=== PATIENT | female | born 1950 | race Caucasian/White ===

== ENCOUNTER 2019-01-24 12:24 | Inpatient (IN) | payer MEDICARE, BC ==
[2019-01-24] MEDS ORDERED: Morphine 4 MG/ML VIAL ONE ×3 (13:31→18:41)
[2019-01-24] MEDS ORDERED: Ondansetron PF 4 MG/2 ML Vial ONE (13:32)
[2019-01-24 14:09] LABS: #Lymphocytes 0.6 thou/uL (1.20-3.40); #Neutrophils 7.1 thou/uL (1.40-6.50); %Basophils 0.2 % (0.0-1.0); %Eosinophils 0.3 % (0.0-10.0); %Lymphocytes 6.6 % (21.0-51.0); %Monocytes 11.8 % (0.0-10.0); Hemoglobin 17.3 g/dL (12.0-16.0); Mean Corpuscular HGB CONC 33.6 g/dL (32.0-36.0); Mean Platelet Volume 7.3 fL (7.4-10.4); Platelet Count 266 thou/uL (130-400); RBC Distribution Width 12.2 % (11.5-14.5); White Blood Cell (WBC) Count 8.7 thou/uL (4.8-10.8)
[2019-01-24 14:28] LABS: ALT (SGPT) 20 U/L (8-55); AST (SGOT) 25 U/L (5-34); Albumin 4.3 g/dL (3.4-4.8); Alkaline Phosphatase 82 U/L (40-110); Anion Gap 25 mmol/L (10-20); BUN (Urea Nitrogen) 33 mg/dL (9.8-20.1); Bilirubin, Total 1.9 mg/dL (0.2-1.2); Calc. Creatinine Clearance 0 mL/min (70-130); Calcium 9.4 mg/dL (7.8-10.44); Carbon Dioxide 21 mmol/L (23-31); Chloride 101 mmol/L (98-107); Estimated GFR-MDRD 54; Globulin 3.1 g/dL (2.4-3.5); Glucose 70 mg/dL (80-115); Potassium 3.2 mmol/L (3.5-5.1); Protein, Total 7.4 g/dL (6.0-8.3); Sodium 144 mmol/L (136-145)
[2019-01-24 14:30] LABS: MDiff Complete? YES; Macrocytosis SLIGHT = 6-15 cells (100X) (0-5/hpf); Platelet Morphology Comment Appears Adequate; Polychromasia SLIGHT = 2-3 cells (100X) (0-2/hpf)
[2019-01-24 16:22] LABS: Bilirubin Small (Negative); Blood, Urine Negative (Negative); Glucose, Urine (Dipstick) Negative (Negative); Leukocyte Small (Negative); Nitrite Positive (Negative); Protein, Urine (Dipstick) 30 mg/dL (Neg-Trace)
[2019-01-24 16:27] LABS: Clarity Hazy (Clear)
[2019-01-24 16:28] LABS: Bacteria/HPF 4+ HPF (None Seen); RBC/HPF 0-3 HPF (0-3); Squamous Epithelial 0-3 HPF (0-3); WBC/HPF 21-50 HPF (0-3)
[2019-01-24] MEDS ORDERED: Iopamidol-370 76% 500 ML 1 ML ONE (16:43)
--- NOTE | 2019-01-24 17:06 | CT ---
EXAM: CT angiogram chest and abdomen with IV contrast and three-dimensional reconstructions PROVIDED CLINICAL HISTORY: Back pain COMPARISON: None FINDINGS: There is no evidence for aortic dissection or aneurysm. The pulmonary arterial system demonstrates no filling defect as visualized. The lungs are free of significant opacity. No pleural fluid or pneumothorax apparent. The mesenteric renal and iliac vessels demonstrate no significant abnormality. Scattered atherosclero tic vascular calcification is seen. The solid abdominal organs are suboptimally evaluated in the arterial phase of contrast but appear unremarkable other than fatty liver. There is no bowel dilatati on, inflammatory fat stranding free fluid or free air apparent. There is severe chronic appearing burst fracture involving T8. There is a nondisplaced fracture invol ving the spinous process of T8 which appears acute. There is an acute appearing burst fracture involving L1. There is retropulsion of the posterior aspects of the vertebral body into the spinal ca nal with associated mild canal stenosis. Vertebral body heights appear otherwise preserved. Remote right-sided rib fractures are seen. IMPRESSION: 1. No evidence for aortic dissection. 2. Acute T8 spinous process and L1 burst fractures. 3. Severe chronic appearing burst fracture of T8.
[2019-01-24] MEDS ORDERED: Sodium Chloride 0.9% 100 ML ONE (18:41)
[2019-01-24] MEDS ORDERED: cefTRIAXone\\ROCEPHIN 2 GM VIAL ONE (18:41)
[2019-01-24] MEDS ORDERED: Ondansetron ODT 4 MG TAB PO PRN (19:40)
[2019-01-24 19:49] LABS: Hemoglobin 16.5 g/dL (12.0-16.0); Mean Corpuscular HGB CONC 33.7 g/dL (32.0-36.0); Mean Corpuscular Hemoglobin 36.2 pg (27.0-31.0); Mean Platelet Volume 7.3 fL (7.4-10.4); Platelet Count 256 thou/uL (130-400); RBC Distribution Width 12.2 % (11.5-14.5); Red Blood Cell (RBC) Count 4.57 mill/uL (4.20-5.40)
[2019-01-24 19:59] LABS: #Eosinphils 0.1 thou/uL (0.0-0.7); #Monocytes 1.2 thou/uL (0.11-0.59); #Neutrophils 6.7 thou/uL (1.40-6.50); %Basophils 0.1 % (0.0-1.0); %Eosinophils 1.1 % (0.0-10.0); %Lymphocytes 10.9 % (21.0-51.0); %Monocytes 13.6 % (0.0-10.0); %Neutrophils 74.2 % (42.0-75.0)
[2019-01-24 20:03] LABS: Lactic Acid 1.1 mmol/L (0.5-2.2)
--- NOTE | 2019-01-24 20:10 | PDOC.EVN ---
Event Note - Event Note Event Note: [id number]
--- NOTE | 2019-01-24 20:33 | MRI ---
EXAM: MRI Lumbar Spine WO Con PROVIDED CLINICAL HISTORY: Back pain COMPARISON: CT 01/24/2019 FINDINGS: Acute burst fracture of L1 is redemonstrated. Approximately 20% loss of vertebral body height. There is reduction in the diameter of the central canal from 15 mm at the level of T12 to approximately 10 millimeters at L1 due to the retropulsed posterior L1 vertebral margin. Lumbar alignment appears normal. Vertebral body heights appear otherwise preserved as visualized. The central canal and foramina demonstrate no additional significant stenosis. Bilateral facet arthritis is noted at L4-5 and L5-S1. Tarlov cyst formation is seen within the sacral canal. IMPRESSION: Acute L1 burst fracture with effacement of the spinal canal as described.
--- NOTE | 2019-01-24 21:13 | HP ---
CHIEF COMPLAINT: Low back pain. HISTORY OF PRESENT ILLNESS: Ms. Soto is a 68-year-old female with past medical history of hypertension, hypothyroidism, thyroid cancer, presents to the emergency room with low back pain that started few days ago. Pain started upon waking up from bed. Denies any known injury, trauma. Back pain is exacerbated with bearing weight. She reported that she was seen at [facility] a few days ago, was diagnosed with fracture in her back. She reports history of neuropathy in her bilateral lower extremities. Workup in the emergency room, including CT angiogram of the chest and abdomen, the patient was found to have acute T8 spinous process and L1 burst fractures. Also severe chronic-appearing burst fracture of T8. Also workup in the emergency room, patient was found to have urinary tract infection. The patient has been feeling increasingly weak and tired lately. Neurosurgeon is being consulted. It was advised to admit the patient under Medical Service and MRI is being ordered. PAST MEDICAL HISTORY: 1. Hypertension. 2. Hypothyroidism. 3. Thyroid cancer. PAST SURGICAL HISTORY: 1. Thyroidectomy. 2. Neuroma on left foot, removed. 3. Tonsillectomy. SOCIAL HISTORY: The patient drinks every day, less than 5 drinks per day. Denies drug use. The patient is a former cigarette smoker. ALLERGIES: ALLERGIC TO SULFA AND TETRACYCLINE. HOME MEDICATIONS: Please see home medication reconciliation form for updated medications. REVIEW OF SYSTEMS: Review of 14 systems negative except what is mentioned history of present illness. FAMILY HISTORY: Reviewed and noncontributory. PHYSICAL EXAMINATION: GENERAL: The patient is awake, alert, in moderate distress. VITAL SIGNS: Initial blood pressure was 203/106, latest blood pressure is 149/99; respiratory rate is 18; pulse is 64; temperature 97.5; pulse oximetry is 100% on room air. HEAD AND NECK: Normocephalic, atraumatic. NECK: Supple. No JVD. CHEST: Fair bilateral air entry. HEART: S1, S2 regular. ABDOMEN: Soft, nontender. Bowel sounds present. NEUROLOGIC: Awake, alert, and oriented x3. PSYCHIATRIC: Normal mood. MUSCULOSKELETAL: Low back tenderness. LABORATORY DATA: Urinalysis is positive for bacteria, wbc's. WBC count is 17.3, hemoglobin is 17.3, and platelets 266. Sodium is 144, potassium is 3.2, glucose is 70, bilirubin is 1.9, sodium is 144. CT of abdomen as mentioned above in the history of present illness. ASSESSMENT AND PLAN: 1. Lumbar vertebral fracture. 2. Acute urinary tract infection. 3. Acute hypokalemia. 4. Acute low back pain. 5. Hypertension, accelerated. PLAN: 1. Admit. 2. Septic workup including urine cultures. 3. IV antibiotics, awaiting culture results. 4. IV fluids. 5. Pain management. 6. Neurosurgeon consulted for evaluation and further management. 7. MRI of the spine is ordered, to follow the results. 8. Reconcile home medications. 9. DVT prophylaxis, SCDs for now. 10. Expected length of stay is at least one midnight. The patient is stable and cleared by neurosurgeon. Job ID: [id number]
[2019-01-24] MEDS: Sodium Chloride 0.9% 1,000 ML IV SCH (21:30)
--- NOTE | 2019-01-24 22:02 | CON ---
DATE OF CONSULTATION: 01/24/2019 HISTORY OF PRESENT ILLNESS: Ms. Soto is a 68-year-old female, who came to the emergency department this evening for severe low back pain. She states that this severe pain started on Saturday when she woke up this morning. She does not recall a fall or trauma, but that is very difficult to get up. She states that it is possible that something happened in the middle of the night that she does not remember. She was seen by primary care on Saturday, was given Robaxin for pain. Outpatient x-rays were taken showing an L1 compression fracture. Things did not improve. She was not given a brace and she reported to the emergency room for severe pain and unable to ambulate. She states that she has not been able to eat or drink anything for the past two days, because she has been bedridden. She states that she has some radiating pain if she tries to move from the low back on that side of her lateral leg, but nothing past the knee and is on the outside. She is not tender and does not follow a specific dermatomal pattern. She denies numbness or tingling. No bowel or bladder dysfunction. No saddle anesthesia. CT shows a burst fracture at L1 and old compression fracture at T8, which is a quite significant compression. The imaging at [place] [facility] shows compression fracture at L1 and comparing the two images, there has definitely been some progression. There is now some retropulsion of this fracture causing mild stenosis in her lumbar spine. The patient is able to move all 4 extremities well. She is alert and oriented. She has bilateral 5/5 strength in deltoids, biceps, triceps, bead trimmer strength, knee flexion , knee extension, dorsiflexion, plantar flexion. She has give-way strength due to pain in bilateral hip flexion. REVIEW OF SYSTEMS: Ten-point review of systems has been completed and negative as stated in the above HPI. ALLERGIES: SULFA, TETRACYCLINES. MEDICATIONS: The patient is unsure of the list of medications, levothyroxine, blood pressure medications, Fosamax. PAST MEDICAL HISTORY: Hypertension, hypothyroidism, history of thyroid cancer. PAST SURGICAL HISTORY: Thyroidectomy, neuroma on left foot removed, and tonsillectomy. SOCIAL HISTORY: The patient states that she drinks alcohol daily. Denies illicit drug use. She is a former tobacco cigarette user, quit more than 10 years ago. PHYSICAL EXAMINATION: VITAL SIGNS: Blood pressure 143/97, heart rate 64, respirations 16, O2 saturations 96% on room air, and temperature 97.8. Constitution: Alert oriented x3 Afebrile, slightly hypertensive, in pain when she moves, nontoxic HEENT: Head normocephalic, atraumatic, PERRL, EOM intact, moist mucus membranes RESP: Normal work breathing room air, symmetric chest rise Extremities: L 5/5 bilateral strength Deltoids, Biceps, Triceps, [employer] Crewmember strength, Knee Flexion, Knee extension, Dorsi flexion, plantar flexion, Give way bilateral Strength to Hip Flexion due to pain. Neuro: Awake Alert oriented X3, Speech spontaneous and fluent, Normal fund of knowledge, No saddle anaesthesia, CN II-XII tested and intact, reflexes symmetric, No clonus, no Babinski IMAGING: CT aortic dissection protocol. No evidence of aortic dissection. Acute T8 spinous process fracture. Chronic appearing compression T8 fracture and acute L1 burst fracture. ASSESSMENT AND PLAN: This is a 68-year-old female who had sever low back pain starting on saturday, Was seen in her PCP office, had Lumbar Xrays, found to have Compression Fx of L1 at that time. She was not given a brace. Pain progressed and reported to the ED, where CT imaging shows worsening of the L1 Fx. Now with retropulsion and narrowing the spinal kajal. We will be bringing Ms. Soto in obtaining MRI to assess for compression of her nerves in the lumbar spine. If needed, we may need to decompress and fuse the segment. Given the strange nauture of her fractures and that pt. is unsure of how this could have happened, her last known fall was a few weeks ago. We will need to get some blood cultures to check for malignancy or infection given that there are lot of uncertainties in this patient's story. Once we have further imaging, we will have more of a plan. Job ID: [id number] [facility]
[2019-01-24] MEDS ORDERED: Potassium Chloride 10 MEQ in Premix Bag 1 BAG IVPB SCH (22:30)
[2019-01-25 01:20] VITALS: BMI 26.3
[2019-01-25 05:33] LABS: Anion Gap 17 mmol/L (10-20); BUN (Urea Nitrogen) 21 mg/dL (9.8-20.1); Calc. Creatinine Clearance 76 mL/min (70-130); Calcium 8.4 mg/dL (7.8-10.44); Carbon Dioxide 23 mmol/L (23-31); Chloride 103 mmol/L (98-107); Estimated GFR-MDRD 67; Glucose 105 mg/dL (80-115); Potassium 3.3 mmol/L (3.5-5.1); Sodium 140 mmol/L (136-145)
[2019-01-25 06:27] LABS: Band 3 % (5-11); Eosinophils 2 % (0-10); Hemoglobin 15.1 g/dL (12.0-16.0); Lymphocytes 8 % (21-51); MDiff Complete? YES; Macrocytosis SLIGHT = 6-15 cells (100X) (0-5/hpf); Mean Corpuscular HGB CONC 33.8 g/dL (32.0-36.0); Mean Corpuscular Hemoglobin 35.6 pg (27.0-31.0); Mean Platelet Volume 7.1 fL (7.4-10.4); Monocytes 14 % (0-10); Neutrophil 70 % (42-75); Platelet Count 239 thou/uL (130-400); Platelet Morphology Comment Appears Adequate; RBC Distribution Width 12.1 % (11.5-14.5); Reactive Lymphocytes 3 % (0-10); Red Blood Cell (RBC) Count 4.25 mill/uL (4.20-5.40); White Blood Cell (WBC) Count 8.3 thou/uL (4.8-10.8)
[2019-01-25] MEDS ORDERED: traMADol HCl 50 MG TAB PO PRN (07:21)
[2019-01-25] MEDS: HYDROcodone/Acetaminophen 7.5/325 mg Tablet PO PRN ×4 (08:27→21:39)
--- NOTE | 2019-01-25 08:42 | PRG ---
DATE OF SERVICE: 01/25/2019 Ms. Soto is starting her second hospital day with us. She was admitted last night through the emergency department with a burst fracture at L1. Her history is complicated. Ms. Soto tells me that from time to time, she goes to bed and wakes in the morning with bumps and scrapes on her scalp and arms. Evidently, she gets out of bed at night, sometimes falls or injures herself after does not remember the incident at all. She denies any alcohol or drug use complicating her memory function. It is with this history that she woke up Saturday with excruciating back pain. She sought medical attention at her primary care physician on Saturday, and an x-ray was ordered of the thoracolumbar spine. Her interpretation of the phone call was that the x-ray looked fine. Because of continued and worsening pain, she eventually came to the emergency department this Saturday, where CT imaging showed a burst fracture of L1 with retropulsion and complete separation of the superior and inferior endplate of L1. An MRI scan was done yesterday, and she was admitted. Ms. Soto denies recent fevers or chills. She does not have a history of metastatic carcinoma. This morning, Ms. Soto is resting in bed with her clamshell TLSO in place. She feels a bit better with the brace. No fevers have been recorded since her admission. Her blood pressures have been in the 130s to 150s, and other vital signs are stable. There is actually quite good strength in the iliopsoas muscles bilaterally. There is a little bit more pain with flexion of the psoas on the left and on the right. There is good strength in the quadriceps, in the hamstrings, in the anterior tib, in the EHL, in the gastroc, and in the toe flexors. There is no sensory alteration in the lower extremities. I reviewed MR imaging, and the retropulsion on the MRI scan is not so severe that it causes compression of the conus or cauda equina. There is CSF space around the roots. The STIR sequences suggest irritation of the psoas muscles bilaterally. There is a hint that there might be a fluid collection anterior and lateral to the spine at the superior margin of the L1 vertebral body on the right side. No contrast was given during this MR examination. CT of the chest, abdomen, pelvis does not reveal any other lesions. Urinalysis has 4+ bacteria. ASSESSMENT AND PLAN: Ms. Soto has an L1 burst fracture without an obvious cause. This is concerning for osteomyelitis or tumor. With osteomyelitis or tumor in the differential, an MRI scan should be done with contrast, so we are going to fix that error today with a contrast scan. If there is no evidence of infection, then we will have to be quite careful about getting her up with the assistance of at least two people and physical therapy. If she can tolerate weightbearing in her brace and x-rays show that the fracture does not move in the upright position with her brace on, then we can try to treat this conservatively. If there is a hand of developing spinal instability, then she will need operative intervention. On the other hand, if this suspected fluid collection in the psoas muscle on the right side is indeed abscess, then she is going to need blood cultures, sedimentation rate, CRP, bracing, and 2 months to 3 months of IV antibiotic therapy. Thankfully, infection leads to more rapid bony fusion than tumor width. Finally, if there is evidence of tumor on the scan, then operative intervention may be considered to get a diagnosis and stabilize. We will await the results of the contrast images. Job ID: [id number]
[2019-01-25] MEDS ORDERED: Prevnar 13-Val Conj/PF 0.5 ML SYRINGE IM ONE (09:00)
[2019-01-25 09:10] LABS: Free T4 (Free Thyroxine) 0.91 ng/dL (0.70-1.48)
[2019-01-25] MEDS ORDERED: Levothyroxine Sodium 88 MCG TAB PO SCH (10:00)
[2019-01-25] MEDS: Lidocaine 5% Patch TD SCH (10:20)
[2019-01-25] MEDS: hydrALAZINE 20 MG/ML VIAL SLOW IVP PRN (10:26)
--- NOTE | 2019-01-25 11:29 | PDOC.HOSPP ---
- Subjective Encounter Date: 01/25/19 Encounter Time: 08:40 Subjective: still has pain in her lower back, its better with her brace no fever or sob - Objective Vital Signs & Weight: Vital Signs (12 hours) Temp Pulse Resp BP BP Pulse Ox 01/25/19 11:17 73 117/78 01/25/19 10:26 76 129/94 H 01/25/19 10:13 129/94 H 01/25/19 07:22 98.7 F 84 16 139/103 H 92 L 01/25/19 04:02 98.5 F 62 16 143/90 H 94 L Weight Weight 168 lb 3.2 oz I&O: 01/24/19 01/25/19 01/26/19 06:59 06:59 06:59 Intake Total 450 Balance 450 Result Diagrams: 01/25/19 04:50 01/25/19 04:50 Hospitalist ROS - Medication Medications: Active Medications Generic Name Dose Route Start Last Admin Trade Name Freq PRN Reason Stop Dose Admin Hydrocodone Bitart/Acetaminophen 1 tab 01/24/19 19:40 01/25/19 08:27 Healy 7.5/325 PO 1 tab Q4H PRN Administration Moderate Pain (4-6) Hydralazine HCl 10 mg 01/24/19 20:25 01/25/19 10:26 Apresoline SLOW IVP 10 mg Q4H PRN Administration sbp>160 or dbp>90 Sodium Chloride 1,000 mls @ 50 mls/hr 01/24/19 19:45 01/24/19 21:30 Normal Saline 0.9% IV 1,000 mls .Q20H SHERRY Administration Levofloxacin 500 mg/ Device 100 mls @ 100 mls/hr 01/25/19 08:00 01/25/19 08: 17 IVPB 100 mls 0800 SHERRY Administration Levothyroxine Sodium 88 mcg 01/25/19 10:00 01/25/19 09:40 Synthroid PO 01/25/19 12:00 88 mcg 1000 SHERRY Administration Lidocaine 1 patch 01/25/19 09:00 01/25/19 10:20 Lidoderm 5% Patch TD 1 patch DAILY SHERRY Administration - Exam General Appearance: NAD, awake alert Eye: PERRL, anicteric sclera ENT: no oropharyngeal lesions, moist mucosa Neck: supple, no JVD Heart: RRR, no murmur Respiratory: no wheezes, no rales Gastrointestinal: soft, non-tender, non-distended, normal bowel sounds Extremities: no cyanosis, no edema Neurological: cranial nerve grossly intact, no focal deficits Psychiatric: normal affect, A&O x 3 Hosp A/P (1) L1 burst fracture Status: Acute (2) old right rib fractures Status: Chronic (3) chronic T8 fracture Status: Chronic (4) Hypothyroidism Code(s): E03.9 - HYPOTHYROIDISM, UNSPECIFIED Status: Chronic Qualifiers: Hypothyroidism type: acquired Qualified Code(s): E03.9 - Hypothyroidism, unspecified (5) UTI (urinary tract infection) Status: Acute Qualifiers: Urinary tract infection type: acute cystitis Hematuria presence: without hematuria Qualified Code(s): N30.00 - Acute cystitis without hematuria (6) Osteopenia Code(s): M85.80 - OTH DISRD OF BONE DENSITY AND STRUCTURE, UNSPECIFIED SITE Status: Chronic Qualifiers: Osteopenia location: multiple sites Qualified Code(s): M85.89 - Other specified disorders of bone density and structure, multiple sites - Plan is going for MRI with contrast today npo for possible procedures later if needed on lidocaine tts, ultram, norco, nebs h/o thryoid cancer with prior surgery, on synthroid now hemostable mobilize per nsx adv will need rehab eval
--- NOTE | 2019-01-25 13:32 | MRI ---
MRI lumbar spine with contrast: DATE: 01/25/2019 HISTORY: 68-year-old female with low back pain. Burst fracture of L1. FINDINGS: Regarding the vertebral body of T1, there is mild bone marrow enhancement of those portions that are not T2 hyperintense. This is consistent with enhancement of the subacute or acute burst fracture. There is no convincing evidence of neoplastic tumor involving the vertebra, including the bony retrop ulsion. No epidural abnormal enhancement. No abnormal intrathecal enhancement. (Apparent diffuse enhancement of the T12 vertebral body on the sagittal fat suppressed T1-weighted postcontrast sequenc e is due to poor fat saturation, and does not represent actual enhancement). There is edema but no abnormal enhancement within the T12-L1 and L1-2 intervertebral disc spaces. There is diffuse enhancement throughout the right psoas muscle. There is milder enhancement diffusely in left psoas muscle. In the right psoas muscle anteriorly, from approximately L1-2 to L2-3, there is an approximately 2 x 0.9 x 4.5 cm T1 hypointense lesion with rim enhancement and patchy posterior enhancement, but no central enhancement. A smaller, more irregularly-shaped such lesion is present more posteriorly in th e right psoas muscle. A small such lesion in the contralateral left psoas muscle. These have mixed signal intensity on the T2-weighted images, and therefore are not typical for psoas muscle abscesses. Other possibilities include myonecrosis, small hematomas, and small neoplasms, although the appearance is not typical for any of these. IMPRESSION: 1. Acute or subacute burst fracture of L1 with bony retropulsion. The findings are consistent with tr aumatic burst fracture. 2. In addition to diffuse edema and enhancement of bilateral psoas muscles, right greater than left, there are several small focal lesions within the psoas muscles, right greater than left. Exact etiology is uncertain. Recommend follow-up MRI of lumbar spine with and without contrast in 3 months.
[2019-01-25] MEDS ORDERED: Magnevist 469MG/ML 20 ML VIAL ONE (16:58)
--- NOTE | 2019-01-25 17:21 | RAD ---
EXAM: XR Lumbar Spine 1 view PROVIDED CLINICAL HISTORY: Lumbar spine fracture. COMPARISON: MRI lumbar spine on 01/25/2019. FINDINGS: Patient refused lateral view. This limits evaluation. There is a compression fracture of the L1 verte bral body which are shown to represent a burst type fracture on the recent MRI exam. No definite additional height loss is seen on this single AP projection. Degenerative changes are seen involving the lower thoracic and upper lumbar spine. Remote posterior right lower rib fractures are identified. IMPRESSION: 1. Limited examination as the patient refused lateral imaging of the lumbar spine. A compression frac ture of the L1 vertebral body is seen on the AP projection which was shown to represent a burst fracture on MRI lumbar spine also obtained on this date. 2. Degenerative changes in the spine. 3. Remote right-sided rib fractures.
[2019-01-25] MEDS: Sodium Chloride 0.9% 1,000 ML IV SCH (18:00)
[2019-01-25] MEDS: Lidocaine Patch Removal 1 EACH TOP SCH (20:27)
[2019-01-26] MEDS: Sodium Chloride 0.9% 1,000 ML IV SCH ×2 (00:02→17:49)
[2019-01-26] MEDS ORDERED: Levothyroxine Sodium 88 MCG TAB PO SCH (06:00)
[2019-01-26] MEDS: HYDROcodone/Acetaminophen 7.5/325 mg Tablet PO PRN ×3 (07:57→23:38)
[2019-01-26] MEDS: Lidocaine 5% Patch TD SCH (08:00)
--- NOTE | 2019-01-26 09:42 | PRG ---
DATE OF SERVICE: 01/26/2019 Ms. Soto was unable to stand yesterday. There was too much pain in her back for her to get up. This was in spite of wearing a brace and having some assistance. An AP x-ray was done but a lateral was not done. Overnight, her vitals have been relatively stable. When lying flat in bed with her brace on, she has relatively good strength in the lower extremities, and no new numbness. The MRI scan suggests fluid collections in the psoas muscles. This, to me, is indicative of an osteomyelitis and psoas abscess resulting in her pathologic burst fracture. As Ms. Soto is unable to stand even with assistance, I think she will need surgical intervention. In the presence of infection, I can use titanium, but I doubt we will use any cadaver bone graft. If there is any purulent material to sample for culture during surgery, we will do so. Informed Consent: I discussed indications, risks, benefits, alternatives, and expected outcomes from surgery. The risks I discussed included, but were not limited to bleeding, infection, CSF leak, nerve damage, paralysis, incontinence, wheelchair dependence, major blood vessel injury, screw misplacement, cardiopulmonary complications of anesthesia, and . She understands all these risks and wants to proceed. While Ms. Soto will be happy overnight, we will get her to sign consent. We will order antibiotics, and we will plan room on the operative schedule tomorrow for open reduction and internal fixation of L1 burst fracture, decompression of L1, pedicle screw and ermias instrumentation T10-L3. Job ID: [id number] [facility]
[2019-01-26] MEDS: Polyethylene Glycol 3350 17 GM Packet PO SCH (12:51)
[2019-01-26] MEDS: Senokot S 8.6-50 MG TAB PO SCH ×2 (12:53→20:21)
--- NOTE | 2019-01-26 13:29 | PDOC.HOSPP ---
- Subjective Encounter Date: 01/26/19 Encounter Time: 09:00 Subjective: c/o severe pain, she got relief with norco, ultram and lidocaine tts yesterday but none today is moving her extre on bed says she wont be able to get up due to pain - Objective Vital Signs & Weight: Vital Signs (12 hours) Temp Pulse Resp BP Pulse Ox 01/26/19 11:20 98.4 F 72 15 141/96 H 94 L 01/26/19 07:45 97.8 F 69 16 149/96 H 96 01/26/19 03:25 98.4 F 72 16 129/86 94 L Weight Weight 168 lb 3.2 oz I&O: 01/25/19 01/26/19 01/27/19 06:59 06:59 06:59 Intake Total 450 1780 Balance 450 1780 Result Diagrams: 01/25/19 04:50 01/25/19 04:50 Hospitalist ROS - Medication Medications: Active Medications Generic Name Dose Route Start Last Admin Trade Name Freq PRN Reason Stop Dose Admin Hydrocodone Bitart/Acetaminophen 1 tab 01/24/19 19:40 01/26/19 07:57 [place] 7.5/325 PO 1 tab Q4H PRN Administration Moderate Pain (4-6) Hydralazine HCl 10 mg 01/24/19 20:25 01/25/19 10:26 Apresoline SLOW IVP 10 mg Q4H PRN Administration sbp>160 or dbp>90 Sodium Chloride 1,000 mls @ 50 mls/hr 01/24/19 19:45 01/26/19 00:02 Normal Saline 0.9% IV 1,000 mls .Q20H SHERRY Administration Levofloxacin 500 mg/ Device 100 mls @ 100 mls/hr 01/25/19 08:00 01/26/19 08: 00 IVPB 100 mls 0800 SHERRY Administration Lidocaine 1 patch 01/25/19 09:00 01/26/19 08:00 Lidoderm 5% Patch TD 1 patch DAILY SHERRY Administration Miscellaneous Medication 1 each 01/25/19 21:00 01/25/19 20:27 Lidocaine Patch Removal TOP Not Given 2100 SHERRY Polyethylene Glycol 17 gm 01/26/19 09:00 01/26/19 12:51 Miralax PO 17 gm DAILY SHERRY Administration Senna/Docusate Sodium 2 tab 01/26/19 09:00 01/26/19 12:53 Senokot S PO 2 tab BID SHERRY Administration Sodium Chloride 10 ml 01/26/19 09:00 01/26/19 12:54 Flush - Normal Saline IVF Not Given Q12HR SHERRY Tramadol HCl 50 mg 01/25/19 07:21 01/26/19 12:51 Ultram PO 50 mg Q6H PRN Administration Pain - Exam General Appearance: awake alert Eye: PERRL, anicteric sclera ENT: no oropharyngeal lesions, moist mucosa Neck: supple, no JVD Heart: RRR, no murmur Respiratory: no wheezes, no rales Gastrointestinal: soft, non-tender, non-distended, normal bowel sounds Extremities: no cyanosis, no edema Neurological: cranial nerve grossly intact, no focal deficits Psychiatric: normal affect, A&O x 3 Hosp A/P (1) L1 burst fracture Status: Acute (2) old right rib fractures Status: Chronic (3) chronic T8 fracture Status: Chronic (4) Hypothyroidism Code(s): E03.9 - HYPOTHYROIDISM, UNSPECIFIED Status: Chronic Qualifiers: Hypothyroidism type: acquired Qualified Code(s): E03.9 - Hypothyroidism, unspecified (5) UTI (urinary tract infection) Status: Acute Qualifiers: Urinary tract infection type: acute cystitis Hematuria presence: without hematuria Qualified Code(s): N30.00 - Acute cystitis without hematuria (6) Osteopenia Code(s): M85.80 - OTH DISRD OF BONE DENSITY AND STRUCTURE, UNSPECIFIED SITE Status: Chronic Qualifiers: Osteopenia location: multiple sites Qualified Code(s): M85.89 - Other specified disorders of bone density and structure, multiple sites - Plan for surgery in am to fix her L1 fracture with excruciating pain and unable to mobilize on lidocaine tts, ultram, norco, nebs prelim blood cs are -ve, is on ancef, ID consult h/o thryoid cancer with prior surgery, on synthroid hemostable mobilize per nsx adv will need rehab eval
[2019-01-26] MEDS: Cefepime 2 GM, Admixture Fee 1 EACH in Sodium Chloride 0.9% 100 ML IVPB SCH (19:06)
[2019-01-26] MEDS: Vancomycin HCl 750 MG in Sodium Chloride 0.9% 250 ML 250 ML IVPB SCH (20:21)
[2019-01-26] MEDS: Lidocaine Patch Removal 1 EACH TOP SCH (20:22)
[2019-01-26] MEDS ORDERED: Vancomycin HCl 1.25 GM in Sodium Chloride 0.9% 250 ML 300 ML IVPB SCH (21:00)
--- NOTE | 2019-01-27 00:56 | CON ---
DATE OF CONSULTATION: 01/26/2019 REASON FOR CONSULTATION: Evaluation of psoas lesions in the face of lumbosacral spine compression fracture. HISTORY OF PRESENT ILLNESS: A 68-year-old, first admission to this hospital, who has a history of hypertension, hypothyroidism, and is fairly functional, the patient moved from [place] to live in [place] to be close to her son. She was fairly quite independent and able to carry out all her activities of daily living until about a week before admission, when she noticed a progressively worsening pain in the back area, which became intense enough that she could not even get up from a recumbent position. She was brought to [facility] and had a diagnosis of lumbosacral fracture. This included T8 spinous process and L1 burst fractures. She was admitted. An MRI was carried out, and the abnormalities are discussed below. Currently, she has a total shallow in her chest and back area. She is awake, alert, and oriented, and denies any headaches. No visual symptoms, sore throat, odynophagia, or dysphagia. No dyspnea or chest pain. She has quite intense back pain and is pretty much frozen in bed. Any slight movement will intensify the pain. She is voiding spontaneously, and she has no history of diarrhea or constipation. No joint symptoms. No neurological symptoms otherwise. She does have some numbness and tingling, which is chronic in lower extremities. PAST MEDICAL HISTORY: Hypertension, hypothyroidism, and has a history of thyroid cancer in the 70s. PAST SURGICAL HISTORY: Thyroidectomy, tonsillectomy, and neuroma in left foot. SOCIAL HISTORY: She drinks 5 drinks per day. Former cigarette smoker and quit in the 90s. ALLERGIES: SULFA AND TETRACYCLINE. FAMILY HISTORY: Noncontributory. CURRENT MEDICATIONS: 1. [place]. 2. Cefazolin. 3. Levofloxacin. 4. Levothyroxine. 5. Ondansetron. 6. MiraLAX. 7. Tramadol. PHYSICAL EXAMINATION: VITAL SIGNS: Normal temperature, BP 116/100, pulse 68, respirations 16, and O2 saturation 96%. SKIN: We have very small tiny little ulcer, round-shaped, about 0.3 cm in the left gluteal region. The patient has a peripheral IV access. : She is voiding on her own. She is voiding without difficulty, and there is no bladder distention on the physical exam. HEENT: The ocular movements are conjugate. LUNGS: Clear. NECK: No jugular vein distention. MUSCULOSKELETAL: She has a very significant difficulty in moving about the bed because any slight movement will provoke marked intensification of her lumbosacral spine pain. No joint inflammatory activity outside the area of involvement. NEURO: Her cognitive function appears to be perfectly fine. LABORATORY DATA: The white cell count is 8.7 and now at 8.3. Hemoglobin 17.3 and now 15. MCV 107. Neutrophil percentage was 81 and now 74. Sodium 144. Creatinine 1.02. Bilirubin 1.9. Transaminases normal. Albumin 4.3. Urinalysis with 21 to 50 wbc's with pending blood cultures and urine cultures as well. Lumbar spine MRI demonstrated mild bone marrow enhancement and burst fracture of L1. No convincing evidence of tumor. No epidural enhancement noted and no intrathecal enhancement. There is edema but no enhancement of T12-L1 and L1-L2 at intervertebral disk spaces. There is diffuse enhancement throughout the right psoas muscle and from L1 through L3, there is a 2 x 0.9 x 4.5 hypointense lesion with rim enhancement and patchy posterior enhancement but no central enhancement. There was another lesion, irregular shaped in the right psoas muscle and contralateral left psoas muscle with mixed signal intensity. ASSESSMENT: 1. Chronic smoking up to about 20 years ago, somewhat excessive alcoholic beverage use with evidence of macrocytosis but normal platelet count. 2. Acute onset of progressively worsening lumbosacral spine pain with the identified abnormalities noted on MRI above. DISCUSSION: The differential diagnosis includes infection associated with the subsequent fracture plus the extension of the infection towards the paravertebral musculature as noted. Some elements of the MRI appearance are not typical, but that would be the more likely scenario. Next possibility would be a malignancy, but those are typically not primary in the psoas muscle. Metastatic malignancy going to the psoas muscle is quite unusual in the absence of lumbosacral spine involvement at same time. The lesions do not look like myositis ossificans and neither they look like hematomas. So, infection is the more likely scenario. In terms of infections, we have the urinary tract, skin, and gastrointestinal tract as possible sources. She may have liver disease in view of her chronic drinking and those patients tend to have enhanced translocation of bacteria and less ability of the reticuloendothelial system to knock them off as they go through the liver. So anyway, the usual pathogen, Staph aureus MRSA and gram-negative rods are the likely culprits and aspirate can be attempted via CT-guided biopsy. I am not sure the patient would be able to withstand that procedure because of the severe pain that she has. Combination of cefepime and vancomycin would be a good combination. Monitor cultures. Depending on clinical progress, we may be forced to proceed with an attempt at aspirate, CT-guided from the site for pathology and microbiology workup. The patient will likely need treatment with broad-spectrum antimicrobial coverage for protracted period of time and the disposition will likely include transfer to a skilled setting since she is not going to be able to do this on her own. She will need to have quite significant functional improvement before release to the home setting. Job ID: [id number] [facility]
[2019-01-27 05:23] LABS: Hemoglobin 13.6 g/dL (12.0-16.0); Platelet Count 244 thou/uL (130-400)
[2019-01-27] MEDS: hydrALAZINE 20 MG/ML VIAL SLOW IVP PRN (06:01)
[2019-01-27] MEDS: Levothyroxine Sodium 100 MCG TAB PO SCH (06:01)
[2019-01-27] MEDS: Cefepime 2 GM, Admixture Fee 1 EACH in Sodium Chloride 0.9% 100 ML IVPB SCH ×2 (06:02→18:28)
--- NOTE | 2019-01-27 07:00 | PRG ---
DATE OF SERVICE: 01/27/2019 I saw Christine Soto in her hospital room this morning. She still does not get out of bed yesterday. The pain is simply too much for from her burst fractures to stand. This leaves us with surgery as a treatment option. Her vitals have been stable and her neurological examination is as well. I ordered stat coags this morning in preparation for surgery. I had a long discussion with Ms. Soto about the risks of being in bed while the fracture heals. Bedsores, pneumonia and deep venous thrombosis with pulmonary embolus are real risks to consider diffuse muscular atrophy from nonuse in bed is also a significant problem. Therefore, I think stabilization of the fracture, so she can mobilize into therapy is the best course of action. It also give us an opportunity to do any cultures should we find purulent material. We will take her to the operating room today. Job ID: [id number] [facility]
[2019-01-27] MEDS: HYDROcodone/Acetaminophen 7.5/325 mg Tablet PO PRN ×2 (07:22→22:30)
[2019-01-27 07:23] LABS: Prothrombin Time 13.5 SEC (12.0-14.7)
[2019-01-27 07:24] LABS: PTT 35.9 SEC (22.9-36.1)
[2019-01-27] MEDS: Lidocaine 5% Patch TD SCH (08:43)
[2019-01-27] MEDS: Vancomycin HCl 750 MG in Sodium Chloride 0.9% 250 ML 250 ML IVPB SCH ×2 (08:43→20:16)
[2019-01-27] MEDS ORDERED: Dexamethasone 20 MG/5 ML VIAL ONE (09:32)
[2019-01-27] MEDS ORDERED: Ondansetron PF 4 MG/2 ML Vial ONE (09:32)
[2019-01-27] MEDS ORDERED: Lidocaine 1% PF 5 ML VIAL ONE (09:32)
[2019-01-27] MEDS ORDERED: Glycopyrrolate 0.2 MG/ML 5 ML SYRINGE ONE (09:32)
[2019-01-27] MEDS ORDERED: PROPOFOL 200 MG/20 ML VIAL ONE (09:32)
[2019-01-27] MEDS ORDERED: ePHEDrine/0.9% NaCl/PF SYRINGE 50 mg/10 ml ONE (09:32)
[2019-01-27] MEDS ORDERED: Rocuronium Bromide 10 MG/ML (10ML VIAL) ONE (09:32)
[2019-01-27] MEDS: Polyethylene Glycol 3350 17 GM Packet PO SCH (09:38)
[2019-01-27] MEDS: Senokot S 8.6-50 MG TAB PO SCH ×2 (09:38→20:16)
[2019-01-27] MEDS ORDERED: Thrombin 5000 UNITS/5 ML VIAL ONE (09:45)
[2019-01-27] MEDS ORDERED: Sodium Chloride 0.9% 20 ML ONE (09:45)
[2019-01-27] MEDS ORDERED: Bupivacaine HCl 0.5%/Epinephrine 1:200,000/PF 30 ml Vial ONE (09:46)
[2019-01-27] MEDS ORDERED: CEFAZOLIN 2 GM in Premix Bag 1 BAG IVPB SCH (10:00)
[2019-01-27] MEDS ORDERED: Fentanyl 100 MCG/2 ML VIAL ONE ×2 (10:21→15:59)
[2019-01-27] MEDS ORDERED: HYDROmorphone 2 MG/ML VIAL ONE (15:12)
[2019-01-27] MEDS ORDERED: Promethazine 25 MG TAB PO PRN (15:25)
[2019-01-27] MEDS ORDERED: diphenhydrAMINE 50 MG/ML VIAL IVP PRN (15:25)
[2019-01-27] MEDS ORDERED: Acetaminophen 325 MG TAB PO PRN (15:25)
[2019-01-27] MEDS ORDERED: Morphine 4 MG/ML VIAL SLOW IVP PRN (15:25)
[2019-01-27] MEDS ORDERED: tiZANidine HCl 4 MG TAB PO PRN (15:25)
[2019-01-27] MEDS ORDERED: Promethazine HCl 25 MG/ML VIAL IM PRN ×2 (15:25→15:35)
[2019-01-27] MEDS ORDERED: Milk Of Magnesia 30 ML UDCUP PO PRN (15:25)
[2019-01-27] MEDS ORDERED: diphenhydrAMINE 25 MG CAP PO PRN (15:25)
[2019-01-27] MEDS ORDERED: Morphine 2 MG/ML SYRINGE SLOW IVP PRN (15:25)
[2019-01-27] MEDS ORDERED: Mag-Al 1200 mg/1200 mg/30 ML UDCUP PO PRN (15:25)
[2019-01-27] MEDS ORDERED: Acetaminophen/Codeine 30-300mg Tablet PO PRN ×2 (15:25)
[2019-01-27] MEDS ORDERED: Bisacodyl 10 MG SUPP PR PRN (15:25)
[2019-01-27] MEDS ORDERED: Ondansetron PF 4 MG/2 ML Vial IVP PRN (15:25)
[2019-01-27] MEDS ORDERED: Morphine Sulfate 2 MG/ML SYRINGE SLOW IVP PRN (15:35)
[2019-01-27] MEDS ORDERED: PACU-Morphine 4MG/ML VIAL SLOW IVP PRN (15:35)
[2019-01-27] MEDS ORDERED: Ondansetron HCl/PF 4 MG/2 ML Vial IVP PRN (15:35)
[2019-01-27] MEDS ORDERED: Meperidine HCl/PF 25 MG/ML VIAL SLOW IVP PRN (15:35)
[2019-01-27] MEDS ORDERED: Promethazine HCl 25 MG/ML VIAL SLOW IVP PRN (15:35)
[2019-01-27] MEDS ORDERED: HYDROmorphone 2 MG/ML VIAL SLOW IVP PRN (15:35)
--- NOTE | 2019-01-27 16:18 | OP ---
DATE OF PROCEDURE: 01/27/2019 SENIOR UI SOFTWARE ENGINEER: Mary Jo Allred PA-C PREOPERATIVE INDICATION: Prevent neurological deterioration, allow mobilization. PREOPERATIVE DIAGNOSES: 1. L1 burst fracture, unknown etiology, possible pathologic fracture from infection or tumor. 2. Inability to mobilize given severe pain and spinal instability. POSTOPERATIVE DIAGNOSES: 1. L1 burst fracture, unknown etiology, possible pathologic fracture from infection or tumor. 2. Inability to mobilize given severe pain and spinal instability. PROCEDURES PERFORMED: 1. Open reduction and internal fixation of L1 burst fracture with pedicle screw and ermias instrumentation from T11 through L3. 2. Posterolateral arthrodesis, T11 through L3. 3. L1 vertebral body biopsy. 4. L1 vertebral body culture. 5. Morselized allograft. PREOPERATIVE MEDICATIONS: Ancef 2 g IV. DRAIN NUMBER: Zero. DRAIN TYPE: None. DESCRIPTION OF PROCEDURE: The patient was brought to the operating room. General endotracheal anesthesia was induced. The patient was positioned prone on the Dylon frame with the chest and hips supported by the appropriate attachments of the Dylon frame. A lateral fluoro radiograph was used to plan our incision. The upper thoracic compression fracture was not causing significant pain, but the prevention of mobilization was from L1 burst fracture and L1 tenderness and there was bony destruction of the middle of the vertebral body without any intervening calcified bone. We planned an incision, given its access from T11 through L3. The lumbar skin was sterilely prepped and draped. We opened the midline incision with a 10 blade knife and controlled bleeding with bipolar and monopolar cautery. We used monopolar cautery to dissect through subcutaneous tissues to the thoracodorsal fascia. We incised the fascia in the midline and reflected the paraspinal muscles off the spinous process and lamina of T11, T12, L1, L2, and L3. Self-retaining retractors placed and a lateral fluoro radiograph confirmed the levels upon which we were operating. We then proceeded with a bone biopsy and bone culture at L1. Using bony anatomic landmark and a lateral fluoro radiograph, we chose our entry point for transpedicular access to the vertebral body. We drilled the entry hole and advanced a small bone awl through the pedicle into the fractured vertebral body. We aspirated liquid for culture. We aspirated liquid for cytology. We widened our transpedicular approach and used a small pituitary rongeur to take the samples of bone for both histopathology and culture. There was no phill purulence. Because of the lack of purulence, we decided to use a morselized allograft as part of our fusion substrate later in the case. We found in a transpedicular bone sampling that there was indeed a complete lack of bone down the center of what should have been the vertebral body. All of our instruments were quite loose there and this would not have supported her weight for a very long. We turned our attention to fixation of the fracture. Using bony anatomic landmarks and a lateral fluoro radiograph as our guide, we chose our entry points for pedicle screws. We drilled out the bony cortex over entry points and used 1st as a small straight thoracic pedicle probe followed by a larger gearshift awl to advance through the pedicles and the vertebral bodies at T11, T12, L2, and L3. We probed our pedicle trajectories of micro ball probe and found them completely encased in bone. We then tapped each trajectory with a 5.5 mm tap and placed 6.5 mm screws. We did our best to engage the anterior cortex with each of our pedicle screws. Once our [address], we generated a 360-degree image set with our isocentric C-arm. This confirmed adequate positioning of our pedicle screw instrumentation. We then irrigated with bacitracin irrigation. We used endotracheal tube stylet as a template to cut our titanium rods to the appropriate length. These were bent, so that we could reduce some of the kyphosis of the fracture. The rods were placed into the screw heads and caps tightened down over the rods. The tightening process reduced the fracture. Using a torque/counter-torque mechanism, we ensured adequate tightness of the caps down on the rods. We irrigated once again with bacitracin irrigation. We then turned our attention to posterolateral arthrodesis. Using a high-speed drill and a cutting bit, we decorticated bone from T11 through L3 and overall decorticated bleeding bone, we left demineralized bone matrix as our morselized allograft. We treated the entire wound with vancomycin powder. We closed in anatomical layers. We applied a sterile dressing. This was a clean case, no contamination. Job ID: [id number]
--- NOTE | 2019-01-27 16:29 | PDOC.HOSPP ---
- Subjective Encounter Date: 01/27/19 Encounter Time: 14:00 Subjective: is post op, no sob or chest pain - Objective Vital Signs & Weight: Vital Signs (12 hours) Temp Pulse Resp BP BP Pulse Ox 01/27/19 07:28 97.9 F 73 15 148/92 H 92 L 01/27/19 06:01 62 171/106 H Weight Weight 168 lb 3.2 oz I&O: 01/26/19 01/27/19 01/28/19 06:59 06:59 06:59 Intake Total 1780 1680 Balance 1780 1680 Result Diagrams: 01/27/19 03:52 01/25/19 04:50 Hospitalist ROS - Medication Medications: Active Medications Generic Name Dose Route Start Last Admin Trade Name Freq PRN Reason Stop Dose Admin Hydrocodone Bitart/Acetaminophen 1 tab 01/24/19 19:40 01/27/19 07:22 [place] 7.5/325 PO 1 tab Q4H PRN Administration Moderate Pain (4-6) Hydralazine HCl 10 mg 01/24/19 20:25 01/27/19 06:01 Apresoline SLOW IVP 10 mg Q4H PRN Administration sbp>160 or dbp>90 Sodium Chloride 1,000 mls @ 50 mls/hr 01/24/19 19:45 01/26/19 17:49 Normal Saline 0.9% IV 1,000 mls .Q20H SHERRY Administration Cefepime HCl 2 gm/ 100 mls @ 200 mls/hr 01/26/19 19:00 01/27/19 06:02 Miscellaneous Medication 1 IVPB 100 mls each/ Sodium Chloride 0700,1900 SHERRY Administration Vancomycin HCl 750 mg/ Sodium 250 mls @ 250 mls/hr 01/26/19 20:00 01/27/19 08 :43 Chloride IVPB 250 mls 0800,2000 SHERRY Administration Levothyroxine Sodium 100 mcg 01/27/19 06:00 01/27/19 06:01 Synthroid PO 100 mcg 0600 SHERRY Administration Lidocaine 1 patch 01/25/19 09:00 01/26/19 08:00 Lidoderm 5% Patch TD 1 patch DAILY SHERRY Administration Miscellaneous Medication 1 each 01/25/19 21:00 01/26/19 20:22 Lidocaine Patch Removal TOP Not Given 2099 SHERRY Polyethylene Glycol 17 gm 01/26/19 09:00 01/27/19 09:38 Miralax PO Not Given DAILY SHERRY Senna/Docusate Sodium 2 tab 01/26/19 09:00 01/27/19 09:38 Senokot S PO Not Given BID [facility] Sodium Chloride 10 ml 01/26/19 09:00 01/27/19 09:39 Flush - Normal Saline IVF Not Given Q12HR SHERRY Tramadol HCl 50 mg 01/25/19 07:21 01/26/19 12:51 Ultram PO 50 mg Q6H PRN Administration Pain - Exam General Appearance: NAD Eye: PERRL, anicteric sclera ENT: no oropharyngeal lesions, dry oral mucosa Neck: no JVD Heart: no murmur, no gallops Respiratory: no wheezes, no rales Gastrointestinal: soft, non-tender, non-distended, normal bowel sounds Extremities: no cyanosis, no edema Neurological: cranial nerve grossly intact, no focal deficits Hosp A/P (1) L1 burst fracture Status: Acute (2) old right rib fractures Status: Chronic (3) chronic T8 fracture Status: Chronic (4) Hypothyroidism Code(s): E03.9 - HYPOTHYROIDISM, UNSPECIFIED Status: Chronic Qualifiers: Hypothyroidism type: acquired Qualified Code(s): E03.9 - Hypothyroidism, unspecified (5) UTI (urinary tract infection) Status: Acute Qualifiers: Urinary tract infection type: acute cystitis Hematuria presence: without hematuria Qualified Code(s): N30.00 - Acute cystitis without hematuria (6) Osteopenia Code(s): M85.80 - OTH DISRD OF BONE DENSITY AND STRUCTURE, UNSPECIFIED SITE Status: Chronic Qualifiers: Osteopenia location: multiple sites Qualified Code(s): M85.89 - Other specified disorders of bone density and structure, multiple sites - Plan is s/p stabilization of L1 fracture with ORIF 01/27/19, prelim gram stain are - ve from operative site x3. on lidocaine tts, ultram, norco, nebs blood cs are -ve, is on cefepime and vanc per ID advice. h/o thryoid cancer with prior surgery, on synthroid hemostable mobilize per nsx adv will need rehab eval
[2019-01-27] MEDS: Lidocaine Patch Removal 1 EACH TOP SCH (20:16)
[2019-01-28] MEDS: Sodium Chloride 0.9% 1,000 ML IV SCH (02:59)
[2019-01-28] MEDS: Levothyroxine Sodium 100 MCG TAB PO SCH (05:12)
[2019-01-28] MEDS: HYDROcodone/Acetaminophen 7.5/325 mg Tablet PO PRN ×2 (05:55→20:41)
[2019-01-28] MEDS: Cefepime 2 GM, Admixture Fee 1 EACH in Sodium Chloride 0.9% 100 ML IVPB SCH ×2 (05:57→18:36)
--- NOTE | 2019-01-28 07:29 | PRG ---
DATE OF SERVICE: 01/28/2019 I saw Ms. Soto this morning one day after open reduction and internal fixation of her L1 burst fracture. Her surgery was interesting. There was a complete gap in her L1 vertebral body in this space between the superior and inferior endplates. We took multiple biopsies and multiple samples for culture. There was no gross purulence. We also sent tissue for histopathology. I am not sure what is causing her bones to break. This could be critical osteoporosis as the bone quality noticed during pedicle screw placement above and below is quite poor. This amount of critical osteoporosis needs to be managed aggressively with biologic agents. It also indicates that she will need an external brace on the entire time she is healing from this fracture. This is unfortunate because eventually that will weaken her core and back muscles and she will need some aggressive therapy to get those strong again, but in the meantime, Forteo, Prolia, or other biologic agent to increase bone density will be necessary. It also bags a question whether she has abnormalities in her calcium hemostasis system that are related to her thyroid or parathyroids or other metabolic derangement. The psoas fluid collections could not be approached safely surgically anterior and lateral to the vertebral bodies and the ureters and lumbosacral plexus are in the way. If we still need to sample those, then CT-guided approach would be my recommendation. The etiology of those fluid collections is as yet undetermined. Since surgery, her vital signs have been stable. Blood pressures have been in the 100s to 130s. I do not see any fevers recorded. There is good motor function in iliopsoas, the quadriceps, the hamstrings, anterior tib, EHL, gastroc, and the toe flexors this morning. There are areas of numbness in the anterior thigh from positioning on the operating table, but that should improve. The plan for Ms. Soto is to get ultrasound of the lower extremities tomorrow. To begin mobilization today with physical therapy and to look for inpatient rehabilitation. I will lean on our medical colleagues to diagnose the underlying deficiency and calcium hemostasis and/or presence of myeloma, lymphoma, metastatic thyroid disease or osteomyelitis with psoas abscess. Unfortunately, those questions are not answered yet. Job ID: [id number] [facility]
[2019-01-28 08:20] LABS: Vancomycin, Trough 10.9 ug/mL
[2019-01-28] MEDS: Vancomycin HCl 1 GM in Premix Bag 1 BAG IVPB SCH ×2 (09:32→20:44)
[2019-01-28] MEDS: Vancomycin HCl 750 MG in Sodium Chloride 0.9% 250 ML 250 ML IVPB SCH (09:47)
[2019-01-28] MEDS: Lidocaine 5% Patch TD SCH (09:53)
[2019-01-28] MEDS: Polyethylene Glycol 3350 17 GM Packet PO SCH (09:53)
[2019-01-28] MEDS: Senokot S 8.6-50 MG TAB PO SCH ×2 (09:53→20:39)
--- NOTE | 2019-01-28 17:12 | PDOC.HOSPP ---
- Subjective Encounter Date: 01/28/19 Encounter Time: 12:00 Subjective: still has severe pain, is scared to ambulate - Objective Vital Signs & Weight: Vital Signs (12 hours) Temp Pulse Resp BP Pulse Ox 01/28/19 15:22 99.6 F 88 18 115/80 94 L 01/28/19 11:20 98.8 F 88 18 121/83 96 01/28/19 07:35 98.2 F 91 20 100/71 93 L Weight Weight 168 lb 3.2 oz I&O: 01/27/19 01/28/19 01/29/19 06:59 06:59 06:59 Intake Total 1680 1280 Output Total 750 Balance 1680 530 Result Diagrams: 01/27/19 03:52 01/25/19 04:50 Hospitalist ROS - Medication Medications: Active Medications Generic Name Dose Route Start Last Admin Trade Name Freq PRN Reason Stop Dose Admin Hydrocodone Bitart/Acetaminophen 1 tab 01/24/19 19:40 01/28/19 05:55 [place] 7.5/325 PO 1 tab Q4H PRN Administration Moderate Pain (4-6) Hydralazine HCl 10 mg 01/24/19 20:25 01/27/19 06:01 Apresoline SLOW IVP 10 mg Q4H PRN Administration sbp>160 or dbp>90 Sodium Chloride 1,000 mls @ 50 mls/hr 01/24/19 19:45 01/28/19 02:59 Normal Saline 0.9% IV 1,000 mls .Q20H SHERRY Administration Cefepime HCl 2 gm/ 100 mls @ 200 mls/hr 01/26/19 19:00 01/28/19 05:57 Miscellaneous Medication 1 IVPB 100 mls each/ Sodium Chloride 0700,1900 SHERRY Administration Vancomycin HCl 1 gm/ Device 200 mls @ 200 mls/hr 01/28/19 09:00 01/28/19 09: 32 IVPB 200 mls 0900,2100 SHERRY Administration Levothyroxine Sodium 100 mcg 01/27/19 06:00 01/28/19 05:12 Synthroid PO 100 mcg 0600 SHERRY Administration Lidocaine 1 patch 01/25/19 09:00 01/28/19 09:53 Lidoderm 5% Patch TD 1 patch DAILY SHERRY Administration Miscellaneous Medication 1 each 01/25/19 21:00 01/27/19 20:16 Lidocaine Patch Removal TOP Not Given 2100 SHERRY Ondansetron HCl 4 mg 01/27/19 15:25 01/28/19 09:31 Zofran IVP 4 mg DAILYPRN PRN Administration Nausea Pantoprazole Sodium 40 mg 01/28/19 09:00 01/28/19 09:53 Protonix PO 40 mg DAILY SHERRY Administration Polyethylene Glycol 17 gm 01/26/19 09:00 01/28/19 09:53 Miralax PO 17 gm DAILY SHERRY Administration Senna/Docusate Sodium 2 tab 01/26/19 09:00 01/28/19 09:53 Senokot S PO 2 tab BID SHERRY Administration Sodium Chloride 10 ml 01/26/19 09:00 01/28/19 09:54 Flush - Normal Saline IVF Not Given Q12HR SHERRY Tramadol HCl 50 mg 01/25/19 07:21 01/26/19 12:51 Ultram PO 50 mg Q6H PRN Administration Pain - Exam General Appearance: awake alert Eye: PERRL, anicteric sclera ENT: no oropharyngeal lesions, moist mucosa Neck: supple, no JVD Heart: RRR, no murmur Respiratory: no wheezes, no rales Gastrointestinal: soft, non-tender, non-distended, normal bowel sounds Extremities: no cyanosis, no edema Neurological: cranial nerve grossly intact, no focal deficits Psychiatric: normal affect, A&O x 3 Hosp A/P (1) L1 burst fracture Status: Acute (2) old right rib fractures Status: Chronic (3) chronic T8 fracture Status: Chronic (4) Hypothyroidism Code(s): E03.9 - HYPOTHYROIDISM, UNSPECIFIED Status: Chronic Qualifiers: Hypothyroidism type: acquired Qualified Code(s): E03.9 - Hypothyroidism, unspecified (5) UTI (urinary tract infection) Status: Acute Qualifiers: Urinary tract infection type: acute cystitis Hematuria presence: without hematuria Qualified Code(s): N30.00 - Acute cystitis without hematuria (6) Osteopenia Code(s): M85.80 - OTH DISRD OF BONE DENSITY AND STRUCTURE, UNSPECIFIED SITE Status: Chronic Qualifiers: Osteopenia location: multiple sites Qualified Code(s): M85.89 - Other specified disorders of bone density and structure, multiple sites - Plan pharmacy is looking if they can get denosumab, if available may give one dose 60mg, oral calcium bid with vit D3 urine ca, sod, creatinine, spep, upep, calcitonin, intact pTH, vit 25 and 125 OH levels, usg thyroid have been ordered to look for deranged mahin metabolism if any. has old rib fractures as well. If needed will get flow cytometry or single view skull xray. Alb:globulin ratio is normal, total protien is normal. I have d/w to help me out with cause for severe osteoporosis. is s/p stabilization of L1 fracture with ORIF 01/27/19, prelim gram stain are - ve from operative site x3. on lidocaine tts, ultram, norco, nebs blood cs are -ve, is on cefepime and vanc per ID advice. h/o thryoid cancer with prior surgery, on synthroid hemostable mobilize per nsx adv will need rehab
[2019-01-28] MEDS: Calcium Carbonate 600 MG TAB PO SCH (20:41)
[2019-01-28] MEDS: Lidocaine Patch Removal 1 EACH TOP SCH (20:44)
[2019-01-28 22:15] LABS: Creatinine, Urine 31.6 mg/dL (47-110)
[2019-01-29] MEDS: Sodium Chloride 0.9% 1,000 ML IV SCH ×2 (01:07→03:47)
[2019-01-29] MEDS: Levothyroxine Sodium 100 MCG TAB PO SCH (06:20)
[2019-01-29] MEDS: Cefepime 2 GM, Admixture Fee 1 EACH in Sodium Chloride 0.9% 100 ML IVPB SCH (06:20)
--- NOTE | 2019-01-29 07:41 | PRG ---
DATE OF SERVICE: 01/29/2019 Ms. Soto is 2 days out from open reduction and internal fixation of the unstable L1 burst fracture of unknown etiology. She did not get out of bed yesterday, which is a bit disappointing. Overnight, the T-max reached about 100.0 degrees Fahrenheit, but her neurological examination is stable. There is pain in her back from the surgery and this is making her difficult for her to mobilize. An ultrasound of the lower extremities is pending this morning. My plan is to review the ultrasound and begin aggressive mobilization. If we need Pain Management to see her, so that she can move, then we will make the appropriate consult. Eventually, she needs to be placed in inpatient rehabilitation, but she is not ready for it because she has not gotten out of bed yet. I would like to see how she does ambulating in a brace and perhaps she will become a candidate for therapy as she begins to mobilize. She does not need a brace when she is flat in bed, but she should have it on when she is out, either sitting or standing. Job ID: [id number] [facility]
--- NOTE | 2019-01-29 07:48 | ULT ---
EXAM: Bilateral lower extremity venous Doppler US HISTORY: bilateral lower extremity edema and pain, limited mobility FINDINGS: Grayscale, color-flow, Doppler evaluation, spectral analysis of the bilateral lower extremities venou s structures is performed with 2-D imaging. The bilateral common femoral, superficial femoral, popliteal, posterior tibial, proximal greater saphenous and profunda femoral veins are imaged. There is normal luminal compressibility, flow, and augmentation in the visualized deep venous structu res of the bilateral lower extremities. IMPRESSION: No evidence of a deep vein thrombosis in either lower extremity.
[2019-01-29] MEDS: Senokot S 8.6-50 MG TAB PO SCH ×2 (09:22→20:08)
[2019-01-29] MEDS: Lidocaine 5% Patch TD SCH (09:22)
[2019-01-29] MEDS: Vancomycin HCl 1 GM in Premix Bag 1 BAG IVPB SCH (09:22)
[2019-01-29] MEDS: Polyethylene Glycol 3350 17 GM Packet PO SCH (09:22)
[2019-01-29] MEDS: Calcium Carbonate 600 MG TAB PO SCH ×2 (09:22→20:08)
--- NOTE | 2019-01-29 09:50 | ULT ---
THYROID ULTRASOUND: HISTORY: Evaluation for parathyroid mass. The patient has a history of thyroid being removed in 1975. FINDINGS: Real-time imaging of the thyroid bed region was performed. Exam was limited due to the patient's dif ficulty in laying flat for this exam. I do not see any definite residual thyroid tissue or any type of mass. IMPRESSION: Post thyroidectomy change. POS: TPC
--- NOTE | 2019-01-29 10:26 | CON ---
DATE OF CONSULTATION: HISTORY OF PRESENT ILLNESS: Ms. Soto is a 68-year-old white female, who came in with back pain, was found to have a burst fracture of her L1. Neurosurgery was consulted and the patient was said to have undergone an open reduction and internal fixation of the L1 burst fracture with pedicle screw and ermias instrumentation. Neurosurgery is currently following her up. We were consulted because of an incidental finding of proteinuria and whether this patient may have some degree of renal osteodystrophy. The patient's renal function review is within normal, making the renal osteodystrophy unlikely. REVIEW OF SYSTEMS: Positive for back pain. No chest pain. No nausea. No vomiting. No gross hematuria. No dysuria. No productive cough. No fever or chills. No headache. No diplopia. No syncopal episode. No diarrhea. No constipation. MEDICATIONS: Currently, the patient is on; 1. Acetaminophen q.4 p.r.n. 2. Dulcolax p.r.n. 3. Calcium carbonate 600 mg p.o. b.i.d. 4. Cefepime 2 g IV q.12. 5. Vitamin D3, 1000 international units at bedtime. 6. Hydralazine 10 mg IV q.4 p.r.n. 7. Hydrocodone 7.5/325 q.4 p.r.n. 8. Levothyroxine 125 mcg daily. 9. Lidocaine patch t.i.d. 10. Zofran 4 mg q.6. PAST MEDICAL HISTORY: History of osteoporosis; hypertension; hypothyroidism; thyroid cancer, in remission. PAST SURGICAL HISTORY: Status post thyroidectomy, status post left foot surgery for removal of a neuroma, status post tonsillectomy. SOCIAL HISTORY: The patient drinks one shot of whiskey every night. No IV drug abuse. College graduate. Used to smoke for 10 years, 1 pack a day. She is a retired tour conductor. She lives alone. She lives in [place]. She is single. No children. ALLERGIES: SULFA, TETRACYCLINE. TRAUMA: None. IMMUNIZATION: Unknown. HOSPITALIZATIONS: Please see past medical history. FAMILY HISTORY: No family history of ESRD. PHYSICAL EXAMINATION: VITAL SIGNS: Blood pressure is 130/83, heart rate 94, respiratory rate 16, temperature 99.4, and pulse ox 94%. GENERAL: Awake, alert, comfortable, not in distress. SKIN: Adequate turgor. HEENT: She has pinkish conjunctivae. Anicteric sclerae. No neck mass. No carotid bruits. No JVD. CHEST: No deformities. LUNGS: Clear breath sounds. HEART: Normal sinus rhythm. No murmurs, no gallops, no rubs. ABDOMEN: Globular, soft, nontender. No masses. positive for back brace. EXTREMITIES: No edema. No deformities. LABORATORY DATA: Laboratories of January 25, 2019: Sodium 140, potassium 3.3, chloride 103, carbon dioxide 23, BUN 21, creatinine 0.85, glucose 105, calcium 8.4. TSH is 5.0. PTH is 30. 25-hydroxy vitamin D is noted at 3.9 - decreased. On January 24, 2019: AST 25, ALT is 20. Urinalysis shows urine calcium of 2, urine sodium of 61. There is protein in the urine, rbc's 0 to 3, wbc's 21 to 50. ASSESSMENT AND PLAN: 1. Osteoporosis - the patient is currently being treated. She is currently on calcium supplementation as well as on vitamin D. Consider adjusting vitamin D to 5000 international units p.o. daily. In addition, I did note that the PTH is within normal at 30.1. This make it less likely that this patient may have some degree of renal osteodystrophy. Phosphorus will also be checked. Risk factors for osteoporosis include history of rheumatoid arthritis. I doubt she had rheumatoid arthritis. However, RA factor has already been ordered to rule it out. For the moment, continue supportive care. Eventually, this patient will need a Rheumatology consultation to optimize management of her osteoporosis. 2. For the moment, agree with current management. Job ID: [id number]
--- NOTE | 2019-01-29 11:44 | PDOC.HOSPP ---
- Subjective Encounter Date: 01/29/19 Encounter Time: 10:30 Subjective: pain is better this morning encouraged and counselled patient to try to ambulate today no bm yet - Objective Vital Signs & Weight: Vital Signs (12 hours) Temp Pulse Resp BP Pulse Ox 01/29/19 03:30 99.4 F 94 16 130/83 94 L Weight Weight 168 lb 3.2 oz I&O: 01/28/19 01/29/19 01/30/19 06:59 06:59 06:59 Intake Total 1280 1510 840 Output Total 495 477 2520 Balance 530 910 -760 Result Diagrams: 01/27/19 03:52 01/25/19 04:50 Hospitalist ROS - Medication Medications: Active Medications Generic Name Dose Route Start Last Admin Trade Name Freq PRN Reason Stop Dose Admin Hydrocodone Bitart/Acetaminophen 1 tab 01/24/19 19:40 01/28/19 20:41 [place] 7.5/325 PO 1 tab Q4H PRN Administration Moderate Pain (4-6) Calcium Carbonate 600 mg 01/28/19 21:00 01/29/19 09:22 Caltrate PO 600 mg BID SHERRY Administration Hydralazine HCl 10 mg 01/24/19 20:25 01/27/19 06:01 Apresoline SLOW IVP 10 mg Q4H PRN Administration sbp>160 or dbp>90 Sodium Chloride 1,000 mls @ 50 mls/hr 01/24/19 19:45 01/29/19 03:47 Normal Saline 0.9% IV 1,000 mls .Q20H SHERRY Administration Cefepime HCl 2 gm/ 100 mls @ 200 mls/hr 01/26/19 19:00 01/29/19 06:20 Miscellaneous Medication 1 IVPB 100 mls each/ Sodium Chloride 0700,1900 SHERRY Administration Vancomycin HCl 1 gm/ Device 200 mls @ 200 mls/hr 01/28/19 09:00 01/29/19 09: 22 IVPB 200 mls 0900,2100 SHERRY Administration Lidocaine 1 patch 01/25/19 09:00 01/29/19 09:22 Lidoderm 5% Patch TD 1 patch DAILY SHERRY Administration Miscellaneous Medication 1 each 01/25/19 21:00 01/28/19 20:44 Lidocaine Patch Removal TOP 1 each 2099 SHERRY Administration Ondansetron HCl 4 mg 01/27/19 15:25 01/28/19 09:31 Zofran IVP 4 mg DAILYPRN PRN Administration Nausea Pantoprazole Sodium 40 mg 01/28/19 09:00 01/29/19 09:22 Protonix PO 40 mg DAILY SHERRY Administration Polyethylene Glycol 17 gm 01/26/19 09:00 01/29/19 09:22 Miralax PO 17 gm DAILY SHERRY Administration Senna/Docusate Sodium 2 tab 01/26/19 09:00 01/29/19 09:22 Senokot S PO 2 tab BID SHERRY Administration Sodium Chloride 10 ml 01/26/19 09:00 01/29/19 09:23 Flush - Normal Saline IVF 10 ml Q12HR SHERRY Administration Tramadol HCl 50 mg 01/25/19 07:21 01/26/19 12:51 Ultram PO 50 mg Q6H PRN Administration Pain - Exam General Appearance: awake alert Eye: PERRL, anicteric sclera ENT: no oropharyngeal lesions, moist mucosa Neck: supple, no JVD Heart: RRR, no murmur Respiratory: no wheezes, no rales Gastrointestinal: soft, non-tender, non-distended, normal bowel sounds Extremities: no cyanosis, no edema Neurological: cranial nerve grossly intact, no focal deficits Psychiatric: normal affect, A&O x 3 Hosp A/P (1) L1 burst fracture Status: Acute (2) old right rib fractures Status: Chronic (3) chronic T8 fracture Status: Chronic (4) Hypothyroidism Code(s): E03.9 - HYPOTHYROIDISM, UNSPECIFIED Status: Chronic Qualifiers: Hypothyroidism type: acquired Qualified Code(s): E03.9 - Hypothyroidism, unspecified (5) UTI (urinary tract infection) Status: Acute Qualifiers: Urinary tract infection type: acute cystitis Hematuria presence: without hematuria Qualified Code(s): N30.00 - Acute cystitis without hematuria (6) Osteopenia Code(s): M85.80 - OTH DISRD OF BONE DENSITY AND STRUCTURE, UNSPECIFIED SITE Status: Chronic Qualifiers: Osteopenia location: multiple sites Qualified Code(s): M85.89 - Other specified disorders of bone density and structure, multiple sites - Plan pharmacy does not carry denosumab, pt to start denosumab dose 60mg as outpt, oral calcium bid with vit D3 has low 25 OH vit D levels, pTH is normal, usg thyroid no residual tissue or mass (incomplete exam), urine mahin is normal spep, upep, calcitonin, 125 OH levels are pending. has old rib fractures as well. If needed will get flow cytometry or single view skull xray. Alb:globulin ratio is normal, total protien is normal. Rheumatology w/u is s/p stabilization of L1 fracture with ORIF 01/27/19, cultures are -ve from operative site x3. on lidocaine tts, ultram, norco, nebs blood cs are -ve, is on cefepime and vanc per ID advice. h/o thryoid cancer with prior surgery, on synthroid hemostable mobilize per nsx adv to rehab likely this afternoon.
[2019-01-29] MEDS: HYDROcodone/Acetaminophen 7.5/325 mg Tablet PO PRN (11:49)
[2019-01-29] MEDS ORDERED: Naloxone HCl 0.4 mg/ml Vial IV PRN (13:30)
[2019-01-29] MEDS ORDERED: fentaNYL Citrate/PF 2,000 MCG in Sodium Chloride 0.9% 60 ML IV PRN (13:30)
--- NOTE | 2019-01-29 15:05 | PRG ---
DATE OF SERVICE: 01/29/2019 SUBJECTIVE: Ms. Soto had operative procedure with fusion by Dr. Long. The operative report was reviewed, and I did not see any purulent exudate. No evidence of malignancy. He did fuse the area of fracture. She is now having less pain. No dyspnea. No abdominal pain. She has a [place] catheter in place. Cognitive function appears to be intact. OBJECTIVE: VITAL SIGNS: T-max 100, blood pressure 120/94, pulse 84, and respirations 18. SKIN: With the postop findings. No drain in place. [place] catheter in place. GENERAL: Awake, alert, and oriented. LUNGS: Clear. HEART: S1 and S2, regular rate. ABDOMEN: Soft, not distended, moves all extremities equally. LABORATORY DATA: White cell count 8.3, hemoglobin 15, and platelets 239. INR 1.0, sodium 140, creatinine 0.85. Urinalysis; 21 to 50 wbc's, protein of 30. The microbiology of the area is still pending. A small number of wbc's seen. Urine culture, no growth at 12 hours. Pathology report with fragments of bone, broken bone spicules, interstitial hemorrhage, fragments of tissue of the recent hemorrhage, skeletal muscle and collagen fibers, maturing bone marrow elements present in all three cell lines. No malignancy or atypia. ASSESSMENT: 1. Chronic smoking. 2. Acute progression of lumbosacral spine pain with fracture. 3. Abnormalities on MRI with psoas muscle swelling and some areas hypodensity. DISCUSSION: In view of the operative findings and the pathology findings, it is more likely that the psoas muscle changes are due to trauma from the fracture and muscle hemorrhage rather than infection or malignancy. We will go ahead and discontinue antimicrobial therapy. The cultures will be monitored until the end, but I do not think she needs. The evidence argues against the possibility of infection, and malignancy seems to have been ruled out as well. Job ID: [id number]
[2019-01-29] MEDS: Acetaminophen 500 MG TAB PO SCH ×2 (18:11→20:08)
[2019-01-29 19:27] VITALS: BP 132/95; TEMP 99.2
[2019-01-29 20:46] LABS: Vancomycin, Trough 17.3 ug/mL
[2019-01-30] MEDS ORDERED: Levothyroxine Sodium 125 MCG TAB PO SCH (06:00)
--- NOTE | 2019-01-30 13:25 | DIS ---
DATE OF ADMISSION: 01/24/2019 DATE OF DISCHARGE: 01/29/2019 DISCHARGE DISPOSITION: Inpatient rehab. PRIMARY DISCHARGE DIAGNOSES: L1 burst fracture, status post open reduction and internal fixation; old right-sided rib fracture; chronic T8 fracture; suspected osteoporosis; urinary tract infection; hypothyroidism. PROCEDURES DONE DURING HOSPITALIZATION: Lumbar spine MRI without contrast showed acute L1 burst fracture with effacement of the spinal canal. CT dissection protocol, no evidence of aortic dissection, T8 spinous process and L1 burst fractures, chronic appearing burst fracture of T8. The patient had open reduction and internal fixation of L1 burst fracture with pedicle screw and ermias instrumentation from T11 through L3. This was done by Dr. Long on 01/27/2019. Bone biopsy obtained from L1 vertebra showed fragments of bone with hemorrhagic necrosis and marrow necrosis. No atypia or malignancy identified. Steroid ultrasound showed post thyroidectomy change. No residual thyroid tissue or any type of mass were seen. Ultrasound venous Doppler, no evidence of DVT. Blood cultures x2, no growth. Bone culture from the L1 area was negative for any growth. Urine culture, no growth. Hemoglobin and hematocrit 13 and 40, platelet count 244, MCV 105. Sedimentation rate less than 1. 25-hydroxy vitamin D levels were 3.9. Calcitonin less than 2 pg/mL that is within normal limits. Free T4 of 0.91, free T3 of 1.0. TSH 5.02. Intact PTH 30.1. Ionized calcium 4.8 mg/dL that is just above normal. Alkaline phosphatase was 82. Urine creatinine 31.6. Urine sodium 61. Urine calcium 2. DISCHARGE MEDICATIONS: 1. Vitamin D3 of 5000 units p.o. at bedtime. 2. Calcium carbonate 600 mg p.o. twice daily. 3. Prolia 60 mg subcu once every 6 months to be started at inpatient rehab or at the earliest as outpatient. 4. Synthroid 125 mcg p.o. daily. 5. Lidocaine 5% transdermal patch daily. 6. Protonix 40 mg daily. 7. MiraLAX 17 g daily. 8. Senokot-S two tablets twice daily. 9. Tizanidine 4 mg p.o. q.6 hourly p.r.n. ALLERGIES: SULFA AND TETRACYCLINE. INPATIENT CONSULTS: 1. Dr. Long for Neurosurgery. 2. Dr. Baptiste for Infectious Disease. DISCHARGE PLAN: The patient to follow up with her primary care physician in 10 days. She also needs to follow up with Dr. Long in 10 days. BRIEF COURSE DURING HOSPITALIZATION: The patient initially got admitted on the with complaints of severe low back pain and unable to ambulate. Initial workup revealed a L1 burst fracture with old T8 and right-sided rib fractures. The patient was initially placed on med/surg floor for pain management and to mobilize, but the patient had severe intractable pain and was unable to mobilize at all. She has had Neurosurgery consultation. The patient was placed in a clamshell despite which was unable to ambulate. She was taken to operating room for open reduction and internal fixation as mentioned above. Postop, the patient has had small progress with ambulation. She was suspected to have osteoporosis per Neurosurgery operative findings. She needed biologic treatment for help with repair of current fractures and to prevent subsequent fractures per Neurosurgery. She will likely require denosumab 60 mg one dose at the earliest. This could not be given in the hospital as Pharmacy was not carrying it. She has had calcium metabolism workup done. Intact PTH was within normal limits. Ionized calcium was normal. Alkaline phosphatase was normal. 25-hydroxy vitamin D levels were low at 3.9. She was placed on vitamin D3 and calcium carbonate. Once she is with adequate supplementation of calcium and vitamin D3, the patient will require a shot of denosumab. The patient had mild hypothyroidism and has had appropriate increase in her Synthroid dose. There was no residual thyroid tissue on ultrasound. Calcitonin levels were within normal limits. She had multiple fracture with unknown etiology, likely from osteoporosis. She is being discharged to inpatient rehab for further recuperation and ambulation prior to going home. Please see a [id number] documentation for the day of discharge on [facility]. TIME SPENT: A total of 35 minutes was spent on discharge plan. Job ID: [id number]
[2019-02-02] MEDS ORDERED: Alendronate Sodium 70 mg Tablet PO SCH (06:00)
== END 2019-01-29 20:45 | DRG 457 ==
LOC: ERS 12:24 → SURG A 20:40
PROVIDERS: ADMIT Internal Medicine; ATTEND Internal Medicine
PROC: 0QS004Z Reposition Lumbar Vertebra with Internal Fixation Device, Open Approach (ICD-10-PCS; principal; 2019-01-27)
PROC: 0RGA0K1 Fusion of Thoracolumbar Vertebral Joint with Nonautologous Tissue Substitute, Posterior Approach, Posterior Column, Open Approach (ICD-10-PCS; 2019-01-27)
PROC: 0QB00ZX Excision of Lumbar Vertebra, Open Approach, Diagnostic (ICD-10-PCS; 2019-01-27)
PROC: 0RG60K1 Fusion of Thoracic Vertebral Joint with Nonautologous Tissue Substitute, Posterior Approach, Posterior Column, Open Approach (ICD-10-PCS; 2019-01-27)
PROC: 0SG10K1 Fusion of 2 or more Lumbar Vertebral Joints with Nonautologous Tissue Substitute, Posterior Approach, Posterior Column, Open Approach (ICD-10-PCS; 2019-01-27)
DX: M48.56XA Collapsed vertebra, not elsewhere classified, lumbar region, initial encounter for fracture (principal); G95.20 Unspecified cord compression; N30.00 Acute cystitis without hematuria; I10 Essential (primary) hypertension; E03.9 Hypothyroidism, unspecified; C73 Malignant neoplasm of thyroid gland; Z88.2 Allergy status to sulfonamides; E87.6 Hypokalemia; Z87.891 Personal history of nicotine dependence; M85.80 Other specified disorders of bone density and structure, unspecified site; M81.0 Age-related osteoporosis without current pathological fracture; M53.2X6 Spinal instabilities, lumbar region; M62.89 Other specified disorders of muscle
CPT/HCPCS: 36415; 71275; 72020; 72148; 72149; 72191; 74175; 76000; 76536; 80048; 80053; 80202; 81003; 81015; 82306; 82308; 82330; 82340; 82570; 82652; 83520; 83605; 83970; 84165; 84166; 84300; 84439; 84443; 84481; 85007; 85014; 85018; 85025; 85027; 85049; 85610; 85652; 85730; 86038; 86200; 86225; 87040; 87070; 87086; 87205; 88307; 88311; 90471; 90670; 93970; A4353; A9579; C1713; C1768; G0009; J0360; J0670; J0692; J0696; J1100; J1170; J1956; J2001; J2270; J2405; J2704; J3010; J3370; J3480; J3490; J7050; Q9967

== ENCOUNTER 2019-03-04 15:06 | Outpatient (CLI) | payer MEDICARE, BC ==
--- NOTE | 2019-03-04 15:45 | RAD ---
EXAM: LUMBAR SPINE TWO VIEWS: 03/04/19 HISTORY: Thoracolumbar fracture. COMPARISON: 01/25/19. FINDINGS: Severe burst fracture of L1 stabilized with pedicle screws and posterior rods from T11 through L3. Th ere is some retropulsion. No significant malalignment. IMPRESSION: Burst fracture L1 stabilized with pedicle screws and rods. Minimal retropulsion. No significant malal ignment. POS: TPC
--- NOTE | 2019-03-04 15:47 | RAD ---
EXAM: THORACIC SPINE TWO VIEWS: 03/04/19 HISTORY: Thoracolumbar fracture. Pedicle screws and rods stabilize the L1 burst fracture. No significant malalignment. Severe vertebra l body collapse of T8. Stable from 01/24/19 CT. IMPRESSION: L1 burst fracture with stabilization and no significant malalignment. Severe T8 vertebral body collap se, stable. POS: TPC
== END 2019-03-04 15:07 | disposition home or self-care (01) ==
LOC: BICRAD 15:06
PROVIDERS: ATTEND Neurological Surgery
DX: S32.011D Stable burst fracture of first lumbar vertebra, subsequent encounter for fracture with routine healing (principal); Z98.890 Other specified postprocedural states
CPT/HCPCS: 72070; 72100

== ENCOUNTER 2019-05-19 13:44 | Outpatient (CLI) | payer MEDICARE, BC ==
--- NOTE | 2019-05-19 14:09 | RAD ---
Exam: Lumbar spine 2 views: HISTORY: Follow-up fracture COMPARISON: 03/04/2019 FINDINGS: Stable burst fracture of L1 stabilized with pedicle screws and rods from T11 to L3. Disc osteophytosi s and facet arthrosis. Bony demineralization. IMPRESSION: Stable burst fracture L1 with stabilization rods and screws.
--- NOTE | 2019-05-19 14:18 | RAD ---
FRONTAL AND LATERAL IMAGING OF THORACIC SPINE: Date: 05/19/2019 COMPARISON: 03/04/2019. HISTORY: Re-evaluate lumbar spine fracture. FINDINGS: There is a stable L1 burst fracture. There is posterior fusion hardware consisting of bilateral pedic le screws and vertically oriented interlocking rods at the T11, T12, L2, and L3 levels. There is a se annmarie anterior wedge compression fracture at the T8 vertebral body with near complete loss of vertebra l body height and focal thoracic kyphosis, unchanged when compared to the 03/04/2019 examination. No new fracture is evident. The cervical spine is not well assessed on this examination secondary to rotation. IMPRESSION: Stable fracture deformities at L1 and T8. POS: DRU
== END 2019-05-19 13:45 | disposition home or self-care (01) ==
LOC: TBSIIMAG 13:44
PROVIDERS: ATTEND Neurological Surgery
DX: S22.060A Wedge compression fracture of T7-T8 vertebra, initial encounter for closed fracture (principal); S32.011A Stable burst fracture of first lumbar vertebra, initial encounter for closed fracture
CPT/HCPCS: 72072; 72100

== ENCOUNTER 2019-05-20 15:04 | Outpatient (CLI) | payer MEDICARE, BC ==
--- NOTE | 2019-05-20 15:31 | BD ---
EXAM: Bone densitometry using DEXA HISTORY: 68 yo female. Screening for postmenopausal osteoporosis FINDINGS: Left femoral neck--bone mineral density0.605; T score -2.2 ; Z score -0.5 Total proximal left femur--bone mineral density 0.595; T score -2.8 ; Z score -1.4 Right femoral neck--bone mineral density0.564; T score -2.6 ; Z score -0.8 Total proximal right femur--bone mineral density 0.613; T score -2.7 ; Z score -1.3 IMPRESSION: Osteoporosis
== END 2019-05-20 15:05 | disposition home or self-care (01) ==
LOC: BICMAMMO 15:04
PROVIDERS: ATTEND Family Medicine
DX: Z13.820 Encounter for screening for osteoporosis (principal); Z78.0 Asymptomatic menopausal state; M81.0 Age-related osteoporosis without current pathological fracture
CPT/HCPCS: 77080

== ENCOUNTER 2019-05-28 13:21 | Outpatient (CLI) | payer MEDICARE, BC ==
--- NOTE | 2019-05-28 14:41 | MMO ---
Left Breast MAMMO Unilat Diag DDI LT+YOSI. CLINICAL HISTORY: Patient is 68 years old and is seen for diagnostic exam. The patient has the following family history of breast cancer: mother, at age 60, malignant (generic). The patient has a history of thyroid cancer at age 26. The patient has a history of left Stereotatic Biopsy in 2019 - benign, right Excisional Biopsy more than 10 years ago - benign and right needle biopsy more than 10 years ago - benign. VIEWS: The views performed were: left craniocaudal with tomosynthesis; left mediolateral oblique with tomosynthesis; left mediolateral; and left mediolateral with tomosynthesis. FILMS COMPARED: The present examination has been compared to prior imaging studies performed at [facility] on 09/16/2018, 11/14/2018 and 11/17/2018, and at [facility] on 05/28/2019. This study has been interpreted with the assistance of computer-aided detection. MAMMOGRAM FINDINGS: There are scattered fibroglandular densities. Finding 1: There is a new biopsy clip seen in the left breast. No residual calcifications evident. Finding 2: There is a new low density, oval mass measuring 5 millimeters with circumscribed margins seen in the left breast at 9 o'clock. Sonographic findings suggest a debris filled cyst. IMPRESSION: FINDING 2: NEW MASS IN THE LEFT BREAST IS PROBABLY BENIGN. FOLLOW-UP IN 6 MONTHS IS RECOMMENDED. THE RESULTS OF THIS EXAM WERE SENT TO THE PATIENT. ACR BI-RADS Category 3 - Probably benign finding - short interval follow-up suggested. [facility] will notify the patient of the need for additional imaging services. MAMMOGRAPHY NOTE: 1. A negative mammogram report should not delay a biopsy if a dominant of clinically suspicious mass is present. 2. Approximately 10% to 15% of breast cancers are not detected by mammography. 3. Adenosis and dense breasts may obscure an underlying neoplasm. Reported by: KIM WALKER MD Electonically Signed: [id number]
--- NOTE | 2019-05-28 15:23 | ULT ---
LIMITED LEFT BREAST ULTRASOUND: DATE: 05/28/2019. PROVIDED CLINICAL HISTORY: Abnormal mammogram. FINDINGS: Limited sonographic interrogation was performed at the 9 o'clock position of the left breast in the r egion of mammographic concern. There is a circumscribed hypoechoic oval mass with probable enhanced through transmission and well-defined back wall measuring approximately 4 mm. This corresponds to th e mammogram finding and probably reflects a debris-filled cyst. IMPRESSION: BIRADS category 3 - probably benign findings. Six-month followup mammogram and ultrasound are recomm ended.
== END 2019-05-28 13:22 | disposition home or self-care (01) ==
LOC: BICMAMMO 13:21
PROVIDERS: ATTEND Family Medicine
DX: R92.1 Mammographic calcification found on diagnostic imaging of breast (principal); N63.24 Unspecified lump in the left breast, lower inner quadrant
CPT/HCPCS: 76642; 77065; G0279

== ENCOUNTER 2019-12-23 13:41 | Outpatient (CLI) | payer MEDICARE, BC ==
--- NOTE | 2019-12-23 14:43 | MMO ---
Bilateral MAMMO Bilat Diag DDI+YOSI. CLINICAL HISTORY: Patient is 69 years old and is seen for follow-up at short-interval from prior study. The patient has the following family history of breast cancer: mother, at age 60, malignant (generic). The patient has a history of thyroid cancer at age 26. The patient has a history of left Stereotatic Biopsy in 2019 - benign, right Excisional Biopsy more than 10 years ago - benign and right needle biopsy more than 10 years ago - benign. VIEWS: The views performed were: bilateral craniocaudal with tomosynthesis; bilateral mediolateral oblique with tomosynthesis; and bilateral mediolateral with tomosynthesis. FILMS COMPARED: The present examination has been compared to prior imaging studies performed at [facility] on 11/14/2018 and 11/17/2018, and at [facility] on 05/28/2019. This study has been interpreted with the assistance of computer-aided detection. MAMMOGRAM FINDINGS: There are scattered fibroglandular densities. Finding 1: There are stable benign appearing calcifications seen in both breasts. Finding 2: There are stable biopsy clips seen in both breasts. Finding 3: The previously seen abnormality is not definitely seen on the current study. prior left cyst has resolved. There are no suspicious masses, suspicious calcifications, or new areas of architectural distortion. IMPRESSION: THERE IS NO MAMMOGRAPHIC EVIDENCE OF MALIGNANCY. A ROUTINE FOLLOW-UP MAMMOGRAM IN 1 YEAR IS RECOMMENDED. THE RESULTS OF THIS EXAM WERE SENT TO THE PATIENT. ACR BI-RADS Category 2 - Benign finding MAMMOGRAPHY NOTE: 1. A negative mammogram report should not delay a biopsy if a dominant of clinically suspicious mass is present. 2. Approximately 10% to 15% of breast cancers are not detected by mammography. 3. Adenosis and dense breasts may obscure an underlying neoplasm. Reported by: EDUARDO SELBY MD Electonically Signed: [id number]
== END 2019-12-23 13:42 | disposition home or self-care (01) ==
LOC: BICMAMMO 13:41
PROVIDERS: ATTEND Family Medicine
DX: R92.8 Other abnormal and inconclusive findings on diagnostic imaging of breast (principal)
CPT/HCPCS: 77066; G0279